=== PATIENT | male | born 1955 | race Caucasian/White ===

== ENCOUNTER → 2018-11-13 | Outpatient (CLI) | payer MEDICARE ==
[~2018-11-13] MED LIST: GABA300T24 PO; IMIP50 PO; LORA2 PO; TAMS.4ER PO; [UNRECOGNIZED DRUG - OTHER]
[2018-11-13 20:06] LABS: BASOPHILS ABSOLUTE AUTO 0.03 K/mm3 (0.00-0.23); BASOPHILS PERCENT AUTO 0 % (0-2); EOSINOPHILS PERCENT AUTO 1 % (0-6); Hematocrit 49.1 % (37.0-53.0); Hemoglobin 16.5 g/dL (13.5-17.5); IMMATURE GRAN ABSOLUTE AUTO 0.03 K/mm3 (0.00-0.10); IMMATURE GRAN PERCENT AUTO 0 % (0-1); LYMPHOCYTES PERCENT AUTO 20 % (21-46); MONOCYTES ABSOLUTE AUTO 0.75 K/mm3 (0.16-1.47); MONOCYTES PERCENT AUTO 9 % (4-13); Mean Corpuscular HGB 28.6 pg (26.0-34.0); Mean Corpuscular HGB Conc 33.6 g/dL (31.5-36.5); Mean Corpuscular Volume 85 fL (80-100); Mean Platelet Volume 9.3 fL (9.1-12.4); NEUTROPHILS ABSOLUTE AUTO 5.71 K/mm3 (1.96-9.15); NEUTROPHILS PERCENT AUTO 69 % (41-73); Platelet Count 243 K/mm3 (150-400); RDW Coefficient Variation 13.6 % (11.7-14.2); RDW Standard Deviation 42.1 fL (35.1-46.3); Red Blood Cell Count 5.77 M/mm3 (4.30-5.90); White Blood Cell Count 8.32 K/mm3 (4.00-11.30)
[2018-11-13 20:17] LABS: Alanine Aminotransfer (ALT/SGP 38 U/L (12-78); Alk Phos 88 U/L (50-136); Anion Gap 3 mmol/L (6-16); Aspartate Aminotrans (AST/SGOT 27 U/L (12-37); Bilirubin, Total 0.5 mg/dL (0.1-1.0); Blood Urea Nitrogen 26 mg/dL (8-24); Bun/Creatinine Ratio 20.2 (12.0-20.0); CO2, Blood 29 mmol/L (21-32); Calcium, Blood 9.9 mg/dL (8.5-10.1); Chloride, Blood 104 mmol/L (98-108); Creatinine, Blood 1.29 mg/dL (0.60-1.20); Glomerular Filtration Rate >60 (60-); Glucose, Blood 95 mg/dL (70-99); Potassium, Blood 4.2 mmol/L (3.5-5.5); Sodium, Blood 136 mmol/L (136-145)
[2018-11-14 13:29] LABS: CHOL/HDL RATIO 8.4; Cholesterol 353 mg/dL (50-200); HDL Cholesterol 42 mg/dL (>39); LDL/HDL RATIO 5.7; Low Density Lipoprotein Chol 239 mg/dL (0-110); Triglycerides 360 mg/dL (30-160); Very Low Density Lipoprot Chol 72 mg/dL (6-32)
== END ==
LOC: LAB 19:53 → LAB SHORT 19:53
PROVIDERS: Family Medicine
DX: R42 Dizziness and giddiness (principal); R53.83 Other fatigue; E66.01 Morbid (severe) obesity due to excess calories; R73.9 Hyperglycemia, unspecified
CPT/HCPCS: 80053; 80061; 85025

== ENCOUNTER → 2021-10-09 | Outpatient (CLI) | payer MEDICARE | END | disposition home or self-care (01) | LOC: LAB SHORT 15:24 → LAB 15:24 | DX: R35.0 Frequency of micturition (principal) | CPT/HCPCS: 87086 ==

== ENCOUNTER → 2022-12-13 | Outpatient (CLI) | payer MEDICARE ==
[~2022-12-13] MED LIST changes: +GABA300 PO; -GABA300T24 PO; +IMIP10 PO; -IMIP50 PO
== END | disposition home or self-care (01) ==
LOC: LAB 15:53 → LAB SHORT 15:53
DX: L02.222 Furuncle of back [any part, except buttock and flank] (principal)
CPT/HCPCS: 87070; 87075; 87205

== ENCOUNTER 2022-12-18 06:16 | Day surgery (SDC) | payer MEDICARE ==
[2022-12-18] VITALS (12 sets, daily range): BP systolic 100–146; BP diastolic 56–97
[~2022-12-18] VITALS: Ht 175.3 cm; Wt 119.0 kg
--- NOTE | 2022-12-18 07:11 | NUR ---
Patient confirms NPO status and agrees with scheduled surgery. Pre-Op teaching done. Pt verbalizes understanding. Surgical site prepped with 2% Chlorhexidine cloth wipe. Patient reports completing Chlorhexadine shower X2 prior to admission to hospital. History, Chart, Medications and Allergies reviewed before start of procedure.
--- NOTE | 2022-12-18 07:28 | NUR ---
PT LABLE PLACED ON PERSONAL FWW AND TAKEN TO PACU.
--- NOTE | 2022-12-18 18:36 | NUR ---
SHIFT SUMMARY POD0 L TKA, AOX4.AQUACEL AND STAN WRAP TO L KNEE C/D/I. PATIENT WORKED WITH THERAPY, UP IN CHAIR TOLERATING PO INTAKE AND PAIN IS MANAGED WELL. VOIDING AND DENIES PASSING FLATUS AT THIS TIME. VSS, CALL LIGHT IN REACH, ICE, SCD'S, AND CHEVY HOSE IN PLACE. CALL LIGHT IN REACH.
[2022-12-19 00:43] VITALS: BP 127/68
--- NOTE | 2022-12-19 03:38 | NUR ---
SHIFT ASSESSMENT TIME CORRECTION FOR 12/18/22 NOC SHIFT. SHIFT ASSESSMENT DOCUMENTED FOR 12/18/22 AT 02:40 WAS PERFORMED 12/18/22 AT 21:15.
[2022-12-19 04:36] LABS: BASOPHILS ABSOLUTE AUTO 0.02 K/mm3 (0.00-0.23); BASOPHILS PERCENT AUTO 0 % (0-2); EOSINOPHILS ABSOLUTE AUTO 0.01 K/mm3 (0.00-0.68); EOSINOPHILS PERCENT AUTO 0 % (0-6); Hematocrit 39.2 % (37.0-53.0); Hemoglobin 13.3 g/dL (13.5-17.5); IMMATURE GRAN ABSOLUTE AUTO 0.09 K/mm3 (0.00-0.10); IMMATURE GRAN PERCENT AUTO 1 % (0-1); LYMPHOCYTES ABSOLUTE AUTO 1.14 K/mm3 (0.84-5.20); LYMPHOCYTES PERCENT AUTO 7 % (21-46); MONOCYTES ABSOLUTE AUTO 1.27 K/mm3 (0.16-1.47); MONOCYTES PERCENT AUTO 8 % (4-13); Mean Corpuscular HGB 27.6 pg (26.0-34.0); Mean Corpuscular HGB Conc 33.9 g/dL (31.5-36.5); Mean Corpuscular Volume 81 fL (80-100); Mean Platelet Volume 9.5 fL (9.1-12.4); NEUTROPHILS ABSOLUTE AUTO 13.64 K/mm3 (1.96-9.15); NEUTROPHILS PERCENT AUTO 84 % (41-73); Platelet Count 219 K/mm3 (150-400); RDW Coefficient Variation 13.2 % (11.7-14.2); RDW Standard Deviation 38.5 fL (35.1-46.3); Red Blood Cell Count 4.82 M/mm3 (4.30-5.90); White Blood Cell Count 16.17 K/mm3 (4.00-11.30)
--- NOTE | 2022-12-19 04:37 | NUR ---
SHIFT SUMMARY NOC. PT POD 1 FOR TOTAL LEFT KNEE. PT TOLERATING PO INTAKE. PT'S PAIN MANAGED WITH SCHEDULED ORDERS. PT VOIDING AT BEGINING OF SHIFT BUT HAD DIFFICULTY VOIDING LATER ON. HX OF BPH. PT VOIDING AFTER AMBULATION. AQUACEL IS C/D/I WITH POLAR PACK INPLACE. PT HAD BRIEF PERIODS OF REST WITH CALL LIGHT IN REACH.
[2022-12-19 05:05] LABS: Bun/Creatinine Ratio 20.7 (12.0-20.0); Calcium, Blood 8.7 mg/dL (8.5-10.1); Creatinine, Blood 1.5 mg/dL (0.60-1.20); Potassium, Blood 4.6 mmol/L (3.5-5.5)
[2022-12-19 05:19] VITALS: BP 123/61
[2022-12-19 07:11] VITALS: BP 119/61
[2022-12-19 11:20] LABS: Source, Urine Clean Catch
[2022-12-19 12:14] LABS: Bilirubin, Urine Neg (Neg); Blood, Urine Neg (Neg); Glucose Qualitative, Urine Neg (Neg); Ketones, Urine Neg (Neg); Leukocyte Esterase, Urine Neg (Neg); Nitrite, Urine Neg (Neg); Protein, Urine 1+ (Neg); Specific Gravity, Urine 1.015 (1.003-1.022); Urobilinogen, Urine NORM (Normal)
[2022-12-19 12:29] LABS: Appearance, Urine Clear (Clear); Color, Urine Yellow (P-Yellow)
[2022-12-19] MEDS ORDERED: Percocet 5-3251 EACH PO (12:44)
[2022-12-19] MEDS ORDERED: ASPI81CH PO (12:44)
--- NOTE | 2022-12-19 13:27 | NUR ---
DISCHARGE SUMMARY PT A&OX4, VSS/RA, RUBINA PO, VOIDING, AMB SBA FWW/GB, PAIN MANAGED, IV DC'D. DC INS PROVIDED. PT REP UNDERSTANDING THOSE INSTRUCTIONS INCLUDING AQUACEL DRESSING CHANGES/OK TO SHOWER/NO TUB BATHS, SHORT FREQUENT WALKS WITH FWW AT ALL TIMES/ICE & ELEVATE AT REST, WEAR TEDS AND USE POLAR JAY, ASA BID. WILL LEAVE VIA WC WITH ALL PERSONAL POSSESSIONS INCLUDING AQUACEL DRESSINGS DC PACKET, POLAR JAY; BROTHER TOOK [facility]CRIPTS TO [facility] AND THEN WILL COME BACK BY AND [facility] PT TO TAKE HOME.
--- NOTE | 2022-12-20 10:58 | NUR ---
12/20/22 1058 Carla Zamudio VERIFICATIONS: EDIT CHART.
== END 2022-12-19 13:41 | disposition home or self-care (01) ==
LOC: ORSCMMR 06:16 → ORD 07:30 → ORSCMMR 07:30 → ORD 10:00 → SURS 10:45 → ORD 12:30 → ORSCMMR 12-19 13:41 → SURS 12-19 13:41
PROVIDERS: Internal Medicine; Orthopaedic Surgery
PROC: 0SRD0JA Replacement of Left Knee Joint with Synthetic Substitute, Uncemented, Open Approach (ICD-10-PCS; principal; 2022-12-18 07:30)
DX: M17.0 Bilateral primary osteoarthritis of knee (principal); F84.5 Asperger's syndrome; F32.A Depression, unspecified; E78.5 Hyperlipidemia, unspecified; M79.7 Fibromyalgia; F20.9 Schizophrenia, unspecified; Z79.899 Other long term (current) drug therapy; E66.9 Obesity, unspecified; Z68.38 Body mass index [BMI] 38.0-38.9, adult
CPT/HCPCS: 36415; 73560-LT; 80048; 82947; 85025; 97110; 97116; 97161; 97530; A9270; C1713; C1776; J0171; J0690; J0735; J1100; J1885; J2405; J2704; J2795; J3010; J3370; J7120

== ENCOUNTER 2024-01-30 05:34 | Day surgery (SDC) | payer MEDICARE ==
[~2024-01-30] VITALS: Ht 177.8 cm; Wt 116.6 kg
[2024-01-30] VITALS (13 sets, daily range): BP systolic 98–149; BP diastolic 44–95
[~2024-01-30 05:34] MED LIST changes: +ASPI81CH PO; +Flonase 0.05% N16 GM; +IBUP200 PO; +PRAV20 PO; +Percocet 5-3251 EACH PO
[2024-01-30] MEDS ORDERED: Dexmedetomidine HCL 200 MCG / 2 ML ONE (06:38)
[2024-01-30] MEDS ORDERED: Ropivacaine 0.5% HCL/PF 5 MG/ML 30ML Vial ONE (06:39)
[2024-01-30] MEDS ORDERED: propofoL 100 ML IV ONE (06:39)
[2024-01-30] MEDS ORDERED: Dexamethasone Sod Phos 10 MG/ML 1ML VIAL ONE (06:45)
[2024-01-30] MEDS ORDERED: Ondansetron HCl 2 MG / ML 2ML Vial ONE (06:45)
[2024-01-30] MEDS ORDERED: Ketorolac Tromethamine 30mg Vial ONE (06:45)
--- NOTE | 2024-01-30 06:45 | NUR ---
INTO [facility] AMBULATORY. PT DENIES PAIN AT THIS TIME. PT APPEARS ANXIOUS, BUT IS COOPERATIVE. PT HAS HX OF SCHIZO-AFFECTIVE DISORDER. HISTORY AND ALLERGIES REVIEWED. LUNGS CLEAR-SATS>90% ON RA. NPO STATUS CONFIRMED.CHLOHEXIDINE SHOWER AND WIPE X 2. RIDE HOME CONFIRMED.
[2024-01-30] MEDS ORDERED: Lidocaine HCl 2% 20 ML MDV ONE (06:46)
[2024-01-30] MEDS ORDERED: HYDROmorphone HCl/Pf 1MG SYR ONE (06:57)
[2024-01-30] MEDS ORDERED: Lactated Ringer's 1,000 ML IV SCH (07:10)
[2024-01-30] MEDS ORDERED: CeFAZolin Sodium 2,000 MG in NS 100 ML IV SCH (07:10)
[2024-01-30] MEDS ORDERED: Acetaminophen 500 MG Tab PO SCH (07:10)
[2024-01-30] MEDS ORDERED: Bupivacaine 0.5% HCl 5 MG/ML 30MLVIAL ONE (07:11)
[2024-01-30] MEDS ORDERED: CeFAZolin Sodium 2,000 MG VIAL ONE (07:12)
[2024-01-30] MEDS ORDERED: Phenylephrine HCl 100 MCG/ML-NS 10MLSYR (1MG/10ML) ONE (07:45)
[2024-01-30] MEDS ORDERED: EpiNEPhrine 1 MG/1 ML 1ML Vial ONE ×2 (07:48→08:09)
[2024-01-30] MEDS ORDERED: propofoL 20 ML IV ONE ×2 (08:11→08:35)
[2024-01-30] MEDS ORDERED: Vasopressin 20 UNITS/ML 1ML Vial ONE (08:16)
[2024-01-30] MEDS ORDERED: OxyCODONE 5 mg/Acetamin 325 mg TABLET PO PRN (09:05)
--- NOTE | 2024-01-30 10:58 | NUR ---
Patient up to Ambulate independently. Gait steady. Discharge instructions reviewed with patient. Patient verbalizes understanding. Copy given to patient to take home WELL FRIEND. Patient States Post-Procedure ride home has been arranged. Discharged via wheelchair to private car for ride home. PT TOLERATING PO.CIRC CHECK WNL. DRESSING C/D/I. PT REPORTS READY TO GO HOME. PT ABLE TO BEAR WEIGHT AND GET SELF DRESSED. PT SENT WITH DRESSINGS. PT REPORTS HAVING ICE AT HOME.
== END 2024-01-30 10:58 | disposition home or self-care (01) ==
LOC: ORSCMMR 05:34 → ORD 07:30 → ORSCMMR 07:30
PROVIDERS: Orthopaedic Surgery
PROC: 0LQQ0ZZ Repair Right Knee Tendon, Open Approach (ICD-10-PCS; principal; 2024-01-30 07:30)
DX: S86.811A Strain of other muscle(s) and tendon(s) at lower leg level, right leg, initial encounter (principal); F41.9 Anxiety disorder, unspecified; F32.A Depression, unspecified; E78.5 Hyperlipidemia, unspecified; E03.9 Hypothyroidism, unspecified; F20.9 Schizophrenia, unspecified; M79.7 Fibromyalgia; Z79.899 Other long term (current) drug therapy; E66.9 Obesity, unspecified; Z68.36 Body mass index [BMI] 36.0-36.9, adult
CPT/HCPCS: A9270; J0171; J0690; J1100; J1171; J1885; J2371; J2405; J2704; J2795; J7120

== ENCOUNTER → 2024-06-05 | Outpatient (CLI) | payer MEDICARE ==
[2024-06-05 11:19] LABS: Creatinine Urine 58.5 mg/dL (27.00-270.00); Microalbumin, Urine Quant. 10.7 mg/L (0.000-20.000); Protein, Urine Quantitative 5.9 mg/dL (0.0-11.9)
== END ==
LOC: LAB SHORT 09:30 → LAB 09:30 → LAB FUT 06-03 09:20
PROVIDERS: Internal Medicine Nephrology
DX: N18.30 Chronic kidney disease, stage 3 unspecified (principal); D63.1 Anemia in chronic kidney disease; N25.81 Secondary hyperparathyroidism of renal origin; E55.9 Vitamin D deficiency, unspecified; E78.00 Pure hypercholesterolemia, unspecified; R76.9 Abnormal immunological finding in serum, unspecified; R94.5 Abnormal results of liver function studies; R94.6 Abnormal results of thyroid function studies
CPT/HCPCS: 81050; 82043; 82570; 84156